=== PATIENT | male | born 1970 | race African-American/Black ===

== ENCOUNTER 2023-10-24 08:51 | Emergency (ER) | payer BC ==
[2023-10-24 09:21] VITALS: TEMP 97.9
[2023-10-24] MEDS ORDERED: Zofran 4 MG/2 ML VIAL ONE (09:56)
[2023-10-24] MEDS ORDERED: MORPHINE SULFATE 4 MG INJ ONE (09:57)
[2023-10-24] MEDS: Zofran 4 MG/2 ML VIAL IV ONE (09:57)
[2023-10-24] MEDS: MORPHINE SULFATE 4 MG INJ IV ONE (09:57)
[2023-10-24] MEDS ORDERED: Sodium Chloride 0.9% 1000 ML 1,000 ML ONE (09:57)
[2023-10-24] MEDS: Sodium Chloride 0.9% 1000 ML 1,000 ML IV STA (09:58)
[2023-10-24 10:02] LABS: Absolute Neutrophil Ct (ANC) 3.39 x10^3/uL (1.4-6.9); BASOPHIL % 0.4 % (0.0-0.4); Basophil (Absolute #) 0.03 x10^3/uL (0-0.4); Eosinophil % 6.6 % (0.00-5.0); Eosinophil (Absolute #) 0.45 x10^3/uL (0-0.5); Hematocrit 39.7 % (42-50); IMMATURE GRAN # 0.02 x10^3u/L (0.00-0.03); IMMATURE GRAN % 0.3 % (0.00-0.4); Lymphocyte (Absolute #) 2.44 x10^3/uL (1.0-4.6); Mean Cell Volume 75.3 fL (78-100); Mean Corpuscular Hemoglobin 26.6 pg (26-32); Mean Corpuscular Hgb Concent. 35.3 g/dL (32-36); Mean Platelet Volume 10.2 fL (7.5-11.0); Monocyte (Absolute #) 0.45 x10^3/uL (0.0-1.3); Monocytes % 6.6 % (0.0-12.0); Neutrophil % 50.1 % (36.0-66.0); Platelet Count 269 x10^3/uL (150-450); Red Blood Count 5.27 x10^6/uL (4.1-5.6); Red Cell Distribution Width 13.5 % (11.5-14.0); White Blood Count 6.8 x10^3/uL (4.0-10.5)
[2023-10-24 10:10] LABS: Appearance Clear (Clear); Bacteria None Seen /HPF (None Seen); Bilirubin Negative (Negative); Blood Negative (Negative); Epithelial Cells None Seen /HPF (None Seen); Glucose, Urine >=1000 mg/dL (Negative); Hyaline Casts NONE SEEN /LPF (0-2); Ketones Negative (Negative); Leukocyte Esterase Negative (Negative); Nitrite Negative (Negative); Protein,Urine Dip Negative (Negative); RBC 0-2 /HPF (0-5); Specific Gravity >=1.030 (1.005-1.030); Urobilinogen 0.2 mg/dL (0.2); WBC 0-2 /HPF (0-5)
[2023-10-24 10:14] LABS: ADD URINE CULTURE? NO (NO)
[2023-10-24 10:22] LABS: ALBUMIN 4.6 g/dL (3.5-5.0); ANION GAP 16.8 MEQ/L (5-15); BILIRUBIN,TOTAL 0.6 mg/dL (0.2-1.3); Calcium 9.5 mg/dL (8.4-10.2); Creatinine 1 1.32 mg/dL (0.66-1.25); EST GLOMERULAR FILTRATION RATE 64.9 ML/MIN; Total Protein 8.2 g/dL (6.3-8.2)
[2023-10-24 11:49] VITALS: O2SAT 99
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
[2023-10-24 12:56] VITALS: BP 114/73; PULSE 83; RESP 22
== END 2023-10-24 14:48 | disposition home or self-care (01) ==
LOC: ED 08:51
DX: S16.1XXA Strain of muscle, fascia and tendon at neck level, initial encounter (principal); S43.101A Unspecified dislocation of right acromioclavicular joint, initial encounter; V68.5XXA Driver of heavy transport vehicle injured in noncollision transport accident in traffic accident, initial encounter; Y92.411 Interstate highway as the place of occurrence of the external cause; Y99.0 Civilian activity done for income or pay; R07.89 Other chest pain; T17.228A Food in pharynx causing other injury, initial encounter; I10 Essential (primary) hypertension; E11.9 Type 2 diabetes mellitus without complications; E78.5 Hyperlipidemia, unspecified; Z79.84 Long term (current) use of oral hypoglycemic drugs; Z79.85 Long-term (current) use of injectable non-insulin antidiabetic drugs; Z79.899 Other long term (current) drug therapy
CPT/HCPCS: 36000; 36415; 70450; 71260; 72125; 73030; 74177; 80053; 81001; 83690; 84484; 85025; 96374; 96375; 99285; J2270; J2405